=== PATIENT | male | born 1965 | race Caucasian/White ===

== ENCOUNTER → 2017-07-17 | Outpatient (CLI) | payer BC ==
[~2017-07-17] VITALS: Ht 177.8 cm; Wt 86.2 kg
[~2017-07-17] MED LIST: ANAFRANIL50 MG PO; ANAFRANIL75 MG PO; CLOMIPRAMINE HC25 M1 PO; FETZIMA1 EACH PO; HYDROCODONE-AP1 EAC6 PO; IBUPROFEN 200200 M1 PO; IBUPROFEN200 M2 PO; MEN'S MULTIVI200 MCG PO; NABUMETONE 750750 M1 PO; NORCO 5-325 TA1 EACH PO; OXYCODONE-APAP1 EAC6 PO; PERCOCET 7.5-31 EAC1 PO; SYMBYAX 3-25 M1 EACH PO; TRILEPTAL 300300 MG PO; UNICOMPLEX M TA1 TA1 PO
--- NOTE | ~2017-07-17 | HPC ---
[facility] [place] [address] PAIN MANAGEMENT CONSULTATION Name: BOBEMELIAJUANA Flores JR Room #: REG [facility]#: [id number] Admission: 07/17/17 Attend Phys: Quinn Alvarado DO Discharge: Date of : 65 Report #: [id number] THIS REPORT FOR: //name// CC: Jessica Alvarado The patient is a 52-year-old gentleman seen a little greater than 1 year ago, 07/05/2016, for symptomatic lumbar radiculopathy, given a right L4-L5 transforaminal epidural injection, somewhat lost to follow up. The patient notes the injection afforded very good relief, specifically noting 65% relief, able to do activities for 6 plus months. The patient notes the pain has recurred without antecedent trauma and overuse. Pain is in the low back, right leg down the lateral aspect of the leg to the foot. He rates his pain at 8-9 on VAS at the end of the day. He has changed job descriptions at work. He had been involved in some fairly heavy lifting, changing wheels and tires on truck about 70 pounds. He also fell while he was carrying a humidifier down the stairs, this seemed to be the activity that significantly exacerbated pain earlier this year, and pain is continued. He has had 2 back surgeries in 2008 and 2011. The patient notes the pain is exacerbated with standing, walking, and bending. Gets some relief with stretching, Biofreeze and nonsteroidal anti-inflammatory medication. He had a few oxycodone left, which has helped as well. PHYSICAL EXAMINATION: Reveals a 52-year-old gentleman, BMI is 27.3 kg/m2. Blood pressure 129/83, pulse 104, and respirations 20. Alert and oriented to person, place and time, judged to be a reasonable historian. Rises from chair using armrest. Modestly antalgic gait favoring the right leg. Right hip flexion strength is diminished compared to left to objective testing. Positive straight leg raise on the right at 30 degrees. Diffuse tenderness across the low back. No discrete trigger points noted. DIAGNOSTIC STUDIES: Include MRI of the lumbar spine from 2013, noting changes of the right laminotomy at L4-L5; however, postoperative granulation tissue is noted at this level, right-sided nerve roots compromised by [id number] right neural foraminal stenosis. ASSESSMENT: Symptomatic lumbar radiculopathy by clinical exam and history, status post decompressive laminectomy in a gentleman with neuropathic pain component. RECOMMENDATIONS: 1. Percocet 7.5/325, prescription generated today 1 tablet 2-3 times a day as needed for pain, dispense 100 tablets, no refills. 2. Continue ibuprofen OTC. [facility] [address] [place] [address] PAIN MANAGEMENT CONSULTATION Name: EMELIA ROJAS Room #: REG [facility]#: [id number] Admission: 07/17/17 Attend Phys: Quinn Alvarado DO Discharge: Date of : 65 Report #: [id number] 3. Right L4-L5 transforaminal epidural injection today. 4. Follow up in 3 weeks for reevaluation and consideration of repeat injection if indicated clinically. PROCEDURE: Right L4-L5 transforaminal epidural injection under fluoroscopy. PROCEDURE NOTE: After both written and informed consent was obtained including risk of spinal cord damage, infection, increased pain and paralysis, the patient agreed to proceed. The patient was taken to the fluoroscopy suite, placed in a prone position with appropriate abdominal bolstering. After sterile prep with ChloraPrep and sterile drape, a skin wheal with 1% Xylocaine was raised. A 22 gauge 4-1/2 inch epidural Tuohy needle was inserted. From an oblique approach into the posterior-superior aspect of the right L4-L5 neural foramen with continuous pressure on the glass syringe plunger for loss of resistance. Glass syringe was filled with 2 cc of 0.1 Xylocaine. The glass loss of resistance syringe was removed. A low volume extension tubing was connected, negative aspiration was accomplished for cerebrospinal fluid or blood. 1 mL of Omnipaque was injected which showed spread both within the epidural space and laterally along the nerve root. This was followed with 80 mg of triamcinolone plus 1 mL of 1.5% preservative-free Xylocaine. Needle was partially withdrawn, 0.5 mL of Xylocaine was injected to clear the needle and the needle was removed. The area was cleansed, band-aid was applied. The patient was allowed to ambulate to the recovery room, discharged in good and stable condition. By: [id number] Quinn Alvarado DO /nt
[2017-07-17 08:37] VITALS: BP 129/83
== END | disposition home or self-care (01) ==
LOC: PAIN 06:26
DX: M54.16 Radiculopathy, lumbar region (principal); Z98.890 Other specified postprocedural states; M48.06 Spinal stenosis, lumbar region; G62.9 Polyneuropathy, unspecified

== ENCOUNTER → 2017-09-03 | Outpatient (CLI) | payer BC ==
[~2017-09-03] VITALS: Ht 177.8 cm; Wt 91.7 kg
--- NOTE | ~2017-09-03 | HPC ---
[facility] [place] [address] [place] [address] PAIN MANAGEMENT CONSULTATION Name: EMELIA ROJAS Room #: REG [facility]#: [id number] Admission: 09/03/17 Attend Phys: Milagro Baker MD Discharge: Date of : 65 Report #: [id number] THIS REPORT FOR: //name// CC: Milagro Corbin DATE OF SERVICE: 09/03/2017 FOLLOWUP COMPLAINT: Pain in the low back and right leg. FOLLOWUP HISTORY: The patient is a 52-year-old gentleman who has been seen in the pain clinic. He suffered from lumbar radiculopathy. This is in the right L4-L5 distribution. He has undergone transforaminal epidural steroid injections by Dr. Alvarado. He feels that these have been beneficial. He has noted a worsening of his pain and has returned to the pain clinic for treatment at this juncture. He rates his pain as a 7-8. It involves his right low back with pain radiating down into the buttocks, right leg lateral radiation to his knee and down to the calf area. He has some discomfort in his right hip as well. PHYSICAL EXAMINATION: Blood pressure 177/83, pulse 64, respiratory rate 20, room air saturation is 100%. IMPRESSION: Lumbar radiculopathy, L5 distribution on the right. RECOMMENDATIONS: We will proceed with an epidural steroid injection using the transforaminal approach. PROCEDURE NOTE: The patient was placed in the prone position. The right lateral area was sterilely prepped. A fluoroscopy was used to place the needle in the appropriate placement for right transforaminal approach at L4-L5. A total of 80 mg Depo-Medrol was injected. The patient tolerated the procedure well. There were no complications. He will follow up in the future as needed. We would like to thank you for letting us participate in his care. We hope he continues to improve. <ELECTRONICALLY SIGNED> By: Milagro Baker MD 09/25/17 0902 [id number] Milagro Baker MD /[facility]
[2017-09-03 11:31] VITALS: BP 177/83
== END | disposition home or self-care (01) ==
LOC: PAIN 07:19
DX: M54.16 Radiculopathy, lumbar region (principal)

== ENCOUNTER → 2017-12-05 | Outpatient (CLI) | payer BC ==
[~2017-12-05] VITALS: Ht 177.8 cm; Wt 92.5 kg
[~2017-12-05] MED LIST changes: +CYMBALTA60 MG PO; +QUETIAPINE FUM100 MG PO; +QUETIAPINE FUM150 MG PO; +SEROQUEL200 MG PO; +TRAZODONE 150150 M1 PO; +VRAYLAR1.5 MG PO
--- NOTE | ~2017-12-05 | HPC ---
[facility] [place] [address] PAIN MANAGEMENT CONSULTATION Name: BOBEMELIAJUANA Flores JR Room #: REG [facility]#: [id number] Admission: 12/05/17 Attend Phys: Quinn Alvarado DO Discharge: Date of : 65 Report #: [id number] THIS REPORT FOR: //name// CC: Jessica Alvarado DATE OF SERVICE: 12/05/2017 HISTORY OF PRESENT ILLNESS: The patient is a 52-year-old gentleman typically treated for lumbar radiculopathy, status post two decompressive laminectomies in 2008 and 2011. He does well with occasional right L4-L5 transforaminal epidural injections. I had given him a single injection back in June. He had repeat injection in August with Dr. Fortunato Baker. He notes about 70% overall improvement of baseline pain. Still has some ongoing pain in the right leg. PHYSICAL EXAMINATION: Does show a 52-year-old gentleman, BMI is 29.3 kilograms per meter squared. Vital signs stable with modest hypertension (blood pressure 137/90), pulse is 74, respirations 16, oxygen saturation 95%. Subjective pain score is 4 on a VAS. He has not fallen in the last 3 months. He is hypertensive, medication list was reconciled. We reviewed our opiate consent to treat, contract to sign 04/12/2016. Functional assessment tool score is 57/70. He is in the low risk assessment for opiate diversion. He has slightly decreased right plantarflexion, dorsiflexion, and lower extremity extension perhaps 3-4/5, all other muscle groups are 4-5/5. Positive straight leg raise on the right at 30 degrees. We reviewed the fact that opiate medications are being used to provide analgesia adequate to support activities of daily living, not attempting to achieve a specific pain score on the 0-10 Visual Analog Scale. The current opiate medications are providing sufficient analgesia to allow the patient to participate in activities of daily living. The patient is not exhibiting any aberrant behavior suggestive of drug diversion. The patient is not having any adverse reactions to medications. The patient is not suffering from daytime somnolence or mental acuity changes. The patient is managing opiate-induced constipation with appropriate mfur-xzz-zorqgux agents and dietary considerations. The patient was counseled on concern for caution with operating a motor vehicle while using opiate medications. A physical exam was performed and the patient's functional status was evaluated. All patients with back pain were advised against the bed rest greater than 4 days and were advised to return to normal activities. Pain score assessment was noted and the treatment plan was reviewed with the patient. All current medications, both prescribed and OTC were reviewed and reconciled on the electronic medical record. Tobacco screening was accomplished and smoking cessation was advised when indicated. BMI was noted and diet/exercise modification was recommended for all patients following outside normal [address] [address] PAIN MANAGEMENT CONSULTATION Name: EMELIA ROJAS [id number] Admission: 12/05/17 Attend Phys: Quinn Alvarado DO Discharge: Date of : 65 Report #: [id number] parameters. I reviewed with the patient today their responsibilities to safeguard prescription medications, reviewed their responsibility to utilize medications only as prescribed by the physician. They are to seek and receive pain medications only from 1 physician group ( [facility]). They are to use 1 pharmacy and keep the clinic informed if they change pharmacies. Their responsibilities include making followup visits in a timely fashion and to avoid abrupt discontinuation of medication usage. Their responsibilities further include bringing their medications (bottles from the pharmacy with residual pills) to the visit for possible confirmation of pill counts and the patient understands it is their responsibility to submit to random drug screens to ensure both that the medications prescribed are present, and that no other controlled substances are present. All prescriptions provided today were generated electronically. ASSESSMENT: Symptomatic lumbar radiculopathy status post decompressive laminectomy. PLAN: The patient does well with occasional right transforaminal epidural injections. He is stable on baseline medications, doing reasonably well at this time. We elected to postpone interventional therapy. Simply, we will renew Percocet 7.5/325, dispense 75 tablets. Typically, this lasts him multiple months. He uses the medication actually a nondaily basis. We will see the patient as needed for right L4-L5 transforaminal epidural injection next visit. <ELECTRONICALLY SIGNED> By: Quinn Alvarado DO 12/10/17 0725 [id number] Quinn Alvarado DO /nt
[2017-12-05 10:18] VITALS: BP 137/90
== END ==
LOC: PAIN 07:19
DX: M54.16 Radiculopathy, lumbar region (principal); M96.1 Postlaminectomy syndrome, not elsewhere classified

== ENCOUNTER → 2018-03-27 | Outpatient (CLI) | payer BC ==
[~2018-03-27] VITALS: Ht 177.8 cm; Wt 92.1 kg
[~2018-03-27] MED LIST changes: -QUETIAPINE FUM150 MG PO
--- NOTE | ~2018-03-27 | HPC ---
[facility] [place] [address] PAIN MANAGEMENT CONSULTATION Name: BOBEMELIAJUANA Flores JR Room #: REG [facility].#: [id number] Admission: 03/27/18 Attend Phys: Quinn Alvarado DO Discharge: Date of : 65 Report #: [id number] THIS REPORT FOR: //name// CC: Jessica Alvarado DATE OF SERVICE: 03/27/2018 HISTORY OF PRESENT ILLNESS: The patient is a very pleasant 52-year-old gentleman, long known to the pain clinic, being treated for lumbar radiculopathy, status post 2 discrete lumbar laminectomies with ongoing neuropathic pain. He has done well with occasional right L4-L5 transforaminal epidural injections. He uses Percocet 7.5/325 rarely, 75 tablets prescription generated on 12/05/2017 has lasted nearly 4 months. Returns to pain clinic today noting good relief following the prior injection, 60% for nearly 6 months. Pain has begun to recur. He notes the pain is in the low back, right leg, exacerbated with standing, walking and bending. He has a burning, fatigue, aching sensation, rates a 7-8 on a VAS. PHYSICAL EXAMINATION: GENERAL: Shows pleasant 52-year-old gentleman, BMI is 29.1 kilograms per meter squared. VITAL SIGNS: Show modest hypertension, blood pressure 152/105, pulse 66, respirations 16. MUSCULOSKELETAL: Rises from chair using the armrest, modestly antalgic gait, positive straight leg raise on the right with decreased right hip flexion and plantar flexion strength. The patient notes symptoms seem to get worse after helping his son move. ASSESSMENT: Symptomatic lumbar radiculopathy, status post decompressive laminectomy, neuropathic pain component. RECOMMENDATION: Right L4-L5 transforaminal epidural injection under fluoroscopy today. Follow up simply as needed. He has seen Dr. Fortunato Baker who gave him a right L4-L5 transforaminal epidural injection back in August. We will have him followup with Dr. Baker as needed. PROCEDURE: Transforaminal lumbar epidural injection under fluoroscopy. PROCEDURE NOTE: After both written and informed consent was obtained including risk of spinal cord damage, infection, increased pain and paralysis, the patient agreed to proceed. The patient was taken to the fluoroscopy suite, placed in a prone position with appropriate abdominal bolstering. After sterile prep with ChloraPrep and sterile drape, a skin wheal with 1% Xylocaine was raised. A 22 gauge 4-1/2 inch epidural Tuohy needle was inserted. [place] [address] PAIN MANAGEMENT CONSULTATION Name: EMELIA ROJAS Room #: REG [facility] Jahaira#: [id number] Admission: 03/27/18 Attend Phys: Quinn Alvarado DO Discharge: Date of : 65 Report #: [id number] into the posterior-superior aspect of the right L4-L5 neural foramen with continuous pressure on the glass syringe plunger for loss of resistance. Glass syringe was filled with 2 mL of 0.1 Xylocaine. The glass loss of resistance syringe was removed. A low volume extension tubing was connected, negative aspiration was accomplished for cerebrospinal fluid or blood. 1 mL of Omnipaque was injected which showed spread both within the epidural space and laterally along the nerve root. This was followed with 80 mg of triamcinolone plus 1 mL of 1.5% preservative-free Xylocaine. Needle was partially withdrawn, 0.5 mL of Xylocaine was injected to clear the needle and the needle was removed. The area was cleansed, Band-Aid was applied. The patient was allowed to ambulate to the recovery room, discharged in good and stable condition. <ELECTRONICALLY SIGNED> By: Quinn Alvarado DO 03/30/18 0709 [id number] Quinn Alvarado DO /nt
[2018-03-27 09:06] VITALS: BP 152/105
== END | disposition home or self-care (01) ==
LOC: PAIN 06:56
DX: M54.16 Radiculopathy, lumbar region (principal); G89.29 Other chronic pain; Z98.890 Other specified postprocedural states; Z88.8 Allergy status to other drugs, medicaments and biological substances; Z79.891 Long term (current) use of opiate analgesic

== ENCOUNTER → 2018-06-03 | Outpatient (CLI) | payer BC ==
[~2018-06-03] VITALS: Ht 177.8 cm; Wt 89.4 kg
[2018-06-03 14:35] VITALS: BP 146/108
== END ==
LOC: PAIN 06:49
DX: M54.5 Low back pain (principal); M79.604 Pain in right leg; M25.551 Pain in right hip; Z79.899 Other long term (current) drug therapy

== ENCOUNTER → 2018-07-31 | Outpatient (CLI) | payer BC ==
[~2018-07-31] VITALS: Ht 177.8 cm; Wt 89.2 kg
[~2018-07-31] MED LIST changes: +QUETIAPINE FUM150 MG PO
--- NOTE | ~2018-07-31 | HPC ---
[facility] [place] [address] PAIN MANAGEMENT CONSULTATION Name: BOBEMELIAJUANA Flores JR Room #: REG [facility]#: [id number] Admission: 07/31/18 Attend Phys: Milagro Baker MD Discharge: Date of : 65 Report #: [id number] THIS REPORT FOR: //name// CC: Milagro Corbin DATE OF SERVICE: 07/31/2018 PRIMARY CARE PHYSICIAN: Jessica Corbin M.D. FOLLOWUP HISTORY: Here for medication renewal. HISTORY OF PRESENT ILLNESS: The patient is a 53-year-old gentleman who has been followed in the pain clinic. He has pain secondary to lumbar radiculopathy. He has undergone epidural steroid injections in the past. They have been beneficial. Returns today indicating that his pain continues to be a 7/10. He would like to have his medications renewed at this juncture. He will consider epidural steroid injections in the future. He is not having any problems with his medications. He is able to think clearly. He continues to experience some pain in his low back with pain radiating down into his right foot. He has had pain problems for quite some time since 2008. As you may recall, he has had back surgery on a couple of occasions in 2008 as well as 2011. Notes that the pain improves with his routine of stretching and use of Biofreeze and cold as well as repositioning sometimes heat can be efficacious. He notes that some pain, which exacerbates his discomfort is getting up and moving from a chair. ALLERGIES: No known drug allergies. CURRENT MEDICATIONS: Percocet 7.5 mg 1 p.o. t.i.d., cariprazine, quetiapine ER150 mg at bedtime. PAIN CLINIC ASSESSMENT AND PQRS: 1. Osteoarthritis/rheumatoid arthritis. The patient is not being treated for rheumatoid arthritis. 2. Height 5 feet 10 inches, weight 196 pounds, BMI is 28.2. 3. Vital signs: Blood pressure 145/97, pulse is 70, respiratory rate 18, room air saturation 100%. 4. Pain intensity 04/28. 5. Fall risk. The patient has not fallen in the last 3 months. 6. Blood thinner. The patient is not on a blood thinning medication. 7. Hypertension. The patient states he has not been treated for hypertension. 8. Opioid therapy greater than 6 weeks. The patient is receiving medications from one source, the pain clinic. 9. Risk assessment tool, low for use of opioids. 10. Functional assessment tool 46/70. [address] [address] PAIN MANAGEMENT CONSULTATION Name: EMELIA ROJAS Room #: REG [facility]#: [id number] Admission: 07/31/18 Attend Phys: Milagro Baker MD Discharge: Date of : 65 Report #: [id number] 11. Recreational drug use. The patient denies use of recreational drugs. 12. Tobacco: The patient denies use of tobacco. 13. Alcohol: The patient denies frequent use of alcoholic beverages. PHYSICAL EXAMINATION: GENERAL: The patient is a well-developed, well-nourished, white male. Appears his stated age. He is alert and oriented x 3. Affect is appropriate. Speech is fluent. HEENT: Normocephalic, atraumatic. Extraocular eye muscles intact. Sclerae nonicteric. Mucous membranes are moist. Hearing is within normal limits. NECK: Without adenopathy or JVD. HEART: Regular rate. S1, S2. LUNGS: Clear to auscultation without rhonchi or rales. ABDOMEN: Nontender, without organomegaly. Bowel sounds present. EXTREMITIES: Without significant scoliosis, kyphosis or lordosis. Strength in the lower extremities judged to be 5/5 for the major muscle groups. The patient has some pain and discomfort in the L4-L5 distribution with pain radiating down into his low back area. Notes some pain involving the right side. IMPRESSION: 1. Symptomatic lumbar radiculopathy. 2. Status post lumbar decompressive laminectomy x 2 in 2008 and 2011. 3. Neuropathic pain. 4. Pain treatment with complex medical management. RECOMMENDATIONS: We discussed treatment options with the patient. At this juncture, he feels his medications are working reasonably well. He is gainfully employed. He does not have any problems with his medications. He is able to think clearly. He keeps his medications in a guarded area. He is aware that opioid medications can be problematic. He has seen this in the news. He is aware that 72,000 people last year as a result of opioid medications. He states that his medications are working well. We have also discussed the possible complication of these medications, which could include addiction as well as decreased efficacy secondary to development of tolerance. He would like to continue his medication and keeps them in a guarded area. A script for his medications of oxycodone 7.5 mg 1 p.o. t.i.d. has been written. He will call us if he has any problems. We would like to thank you for letting us participate in his care. We hope he continues to improve. <ELECTRONICALLY SIGNED> By: Milagro Baker MD 08/03/18 1125 [id number] MD ERIN Delgado
[2018-07-31 10:09] VITALS: BP 145/97
== END ==
LOC: PAIN 07:05
DX: M54.16 Radiculopathy, lumbar region (principal); G62.9 Polyneuropathy, unspecified; M96.1 Postlaminectomy syndrome, not elsewhere classified; Z79.899 Other long term (current) drug therapy

== ENCOUNTER → 2018-08-28 | Outpatient (CLI) | payer BC ==
[~2018-08-28] VITALS: Ht 177.8 cm; Wt 89.2 kg
[~2018-08-28] MED LIST changes: +SEROQUEL XR150 MG PO; +ZOLOFT50 MG PO
--- NOTE | ~2018-08-28 | HPC ---
[facility] [place] [address] PAIN MANAGEMENT CONSULTATION Name: BOBEMELIAJUANA Flores JR Room #: REG [facility]#: [id number] Admission: 08/28/18 Attend Phys: Milagro Baker MD Discharge: Date of : 65 Report #: [id number] THIS REPORT FOR: //name// CC: Milagro Corbin DATE OF SERVICE: 08/28/2018 FOLLOWUP COMPLAINT: Here for medication renewal. FOLLOWUP HISTORY: The patient is a 53-year-old gentleman who has been followed in the pain clinic. He suffers from lumbar radiculopathy. He has been provided epidural steroid injections in the past. He finds that these are beneficial. He returns today indicating that his pain is 5/10. He feels that his medications are helpful and would like to have them renewed. He is not having pain significant enough to undergo an epidural steroid injection at this juncture. He feels that his medications enable him to be gainfully employed. Pain has been problematic since 2008. He has undergone back surgery on two occasions in 2008 as well as in 2011. Continues to stretch as well as use cold compresses and Biofreeze. These in conjunction with heated times are efficacious. Notes that this pain does affect activities of daily living. Sometimes standing can be more problematic. ALLERGIES: No known drug allergies. MEDICATIONS: Percocet 7.5 mg 1 p.o. t.i.d., cariprazine, and quetiapine extended release 150 mg at bedtime. PAIN CLINIC ASSESSMENT AND PQRS: 1. Osteoarthritis/rheumatoid arthritis. The patient is not being treated for rheumatoid arthritis. 2. Height 5 feet 10 inches, weight 196 pounds, BMI is 28.2. 3. Vital signs: Blood pressure 149/91, pulse 73, respiratory rate 18, room air saturation is 100. 4. Pain intensity 5/10. 5. Fall risk. The patient has not fallen in the last 3 months. 6. Blood thinner. The patient is not on a blood thinning medication. 7. Hypertension. The patient is being treated for hypertension. 8. Opioids greater than 6 weeks. The patient receives his medications from one source, the pain clinic. 9. Risk assessment risk, low risk ____ for opioid use. 10. Functional assessment tool . 11. Recreational drug use. The patient denies use of recreational drugs. 12. Tobacco: The patient has never smoked. 13. Alcohol: The patient denies frequent use of alcoholic beverages. [facility] [address] [place] [address] PAIN MANAGEMENT CONSULTATION Name: EMELIA ROJAS Room #: [facility]#: [id number] Admission: 08/28/18 Attend Phys: Milagro Baker MD Discharge: Date of : 65 Report #: [id number] PHYSICAL EXAMINATION: GENERAL: The patient is a well-developed, well-nourished white male. He appears his stated age. He is alert and oriented x 3. His affect is appropriate. Speech is fluent. HEENT: Normocephalic, atraumatic. Extraocular eye muscles intact. Sclerae nonicteric. Mucous membranes are moist. Hearing is within normal limits. NECK: Without adenopathy or JVD. HEART: Regular rate. S1, S2. LUNGS: Clear to auscultation without rhonchi or rales. ABDOMEN: Without organomegaly. Bowel sounds present. EXTREMITIES: Without scoliosis, kyphosis, or lordosis. Strength in the lower extremities is judged to be 5/5 for the major muscle groups. The patient has some discomfort in L4-L5 distribution with pain that radiates down into his low back area. Pain is primarily on the right side. IMPRESSION: 1. Lumbar radiculopathy. 2. Status post lumbar decompressive laminectomy x 2, in 2008 and 2011. 3. Neuropathic pain. 4. Pain treatment with complex medical management. RECOMMENDATIONS: We discussed treatment options with the patient. We explained the possible complication of opioid use. They include less effectiveness secondary to development of tolerance as well as addiction. The patient feels that the medication is helpful. He is able to remain gainfully employed. He is thinking clearly. He is having no problems with the medication. He is getting the medications from one source. At this juncture, we would like to continue with his medications. We will continue with his medication. A script for his medication of oxycodone 7.5 mg 1 p.o. t.i.d. has been written. He will call us if he has any complications or concerns. We would like to thank you for letting us participate in his care. We hope he continues to improve. By: [id number] Milagro Baker MD /nt
[2018-08-28 08:49] VITALS: BP 149/91
== END ==
LOC: PAIN 06:50
DX: M54.16 Radiculopathy, lumbar region (principal); M96.1 Postlaminectomy syndrome, not elsewhere classified; Z79.899 Other long term (current) drug therapy

== ENCOUNTER → 2018-09-23 | Outpatient (CLI) | payer BC ==
[~2018-09-23] VITALS: Ht 177.8 cm; Wt 86.7 kg
[~2018-09-23] MED LIST changes: +CLONAZEPAM 0.50.5 M1 PO; +PERCOCET 7.5-31 EACH PO
--- NOTE | ~2018-09-23 | HPC ---
[facility] [address] [place] [address] PAIN MANAGEMENT CONSULTATION Name: EMELIA ROJAS Sandra RAY Room #: REG [facility]#: [id number] Admission: 09/23/18 Attend Phys: Mary Ann Pacheco Discharge: Date of : 65 Report #: [id number] THIS REPORT FOR: //name// CC: Mary Ann Pacheco [facility] DATE OF SERVICE: 09/23/2018 CHIEF COMPLAINT: Back pain related to lumbar radiculopathy. HISTORY OF PRESENT ILLNESS: This is a very pleasant 53-year-old gentleman who has been seen in our pain clinic for his ongoing low back pain and right leg pain. He has had multiple lumbar epidural steroid injections in the past that have been helpful, but today, he is here for medication refill for his Percocet 7.5/325. He tells me that he tries to prolong his injections in between them until his pain is significantly worse because he knows he is only allowed so many in a specific timeframe. He is telling me that his pain is a 6 today, worse with burning, tingling and he does feel some weakness in his legs, especially after he has been sitting in a chair for a while, all with bending and twisting. His medication and cold and repositioning do help him feel better. He does deny any daytime sleepiness or any constipation. He would like a prescription refill today of his Percocets. ALLERGIES: GABAPENTIN. LIST OF CURRENT MEDICATIONS: Oxycodone 7.5/325, Seroquel 150 mg at bedtime, Zoloft 50 mg daily, clonazepam 0.5 mg p.r.n. PQRS: 1. He has a history of osteoarthritis in his back. Denies rheumatoid arthritis. 2. Height is 5 feet 10 inches, weight is 192 pounds, BMI is 27.4. 3. Vital signs: Blood pressure 139/82, pulse is 71, respirations 14, oxygen sat is 99%. Pain score is 6/10. 4. Fall risk. He denies dizziness. Does not need help walking or standing and has not fallen in the last 3 months. 5. The patient is not on any blood thinners and does have a history of hypertension, but does not take any medications. 6. Opioid therapy is greater than 6 weeks; therefore, an opioid signed contract is on the chart. 7. His risk assessment tool is low and his functional assessment is 46/70. 8. The patient denies recreational drug use. Does not smoke and does not drink alcohol. We have checked his prescription monitoring programs and find that he is feeling appropriately from Dr. Baker for his narcotic medications. The patient tells me [address] [address] PAIN MANAGEMENT CONSULTATION Name: EMELIA ROJAS Room #: REG [facility]#: [id number] Admission: 09/23/18 Attend Phys: Mary Ann Pacheco Discharge: Date of : 65 Report #: [id number] he does safeguard his medicine and he has no apparent aberrant behaviors. PHYSICAL EXAMINATION: GENERAL: This patient is a well-developed, well-nourished, white male. He appears his stated age. He is alert and oriented x 3. Affect is appropriate and speech is fluent. HEENT: Normocephalic, atraumatic. Extraocular eye muscles are intact. Mucous membranes are moist and hearing is within normal limits. NECK: Without adenopathy or JVD. EXTREMITIES: Without significant scoliosis, kyphosis or lordosis. Strength in lower extremities judged to be 5/5 in all of his major muscle groups. The patient has discomfort from sitting to standing position in his lower back. Pain does radiate down his right leg. ASSESSMENT: 1. Symptomatic lumbar radiculopathy. 2. Status post lumbar decompression laminectomy x 2. 3. Neuropathic pain. 4. Chronic pain treated with complex medical management. We reviewed the fact that opiate medications are being used to provide analgesia adequate to support activities of daily living, not attempting to achieve a specific pain score on the 0-10 Visual Analog Scale. The current opiate medications are providing sufficient analgesia to allow the patient to participate in activities of daily living. The patient is not exhibiting any aberrant behavior suggestive of drug diversion. The patient is not having any adverse reactions to medications. The patient is not suffering from daytime somnolence or mental acuity changes. The patient is managing opiate-induced constipation with appropriate arlm-jbd-yntebea agents and dietary considerations. The patient was counseled on concern for caution with operating a motor vehicle while using opiate medications. A physical exam was performed and the patient's functional status was evaluated. All patients with back pain were advised against the bed rest greater than 4 days and were advised to return to normal activities. Pain score assessment was noted and the treatment plan was reviewed with the patient. All current medications, both prescribed and OTC were reviewed and reconciled on the electronic medical record. Tobacco screening was accomplished and smoking cessation was advised when indicated. BMI was noted and diet/exercise modification was recommended for all patients following outside normal parameters. I reviewed with the patient today their responsibilities to safeguard prescription medications, reviewed their responsibility to utilize medications only as prescribed by the physician. They are to seek and receive pain medications only from 1 physician group ([facility]). They are to use [address] [address] PAIN MANAGEMENT CONSULTATION Name: EMELIA ROJAS Room #: [facility]#: [id number] Admission: 09/23/18 Attend Phys: Mary Ann Pacheco Discharge: Date of : 65 Report #: [id number] pharmacy and keep the clinic informed if they change pharmacies. Their responsibilities include making followup visits in a timely fashion and to avoid abrupt discontinuation of medication usage. Their responsibilities further include bringing their medications (bottles from the pharmacy with residual pills) to the visit for possible confirmation of pill counts and the patient understands it is their responsibility to submit to random drug screens to ensure both that the medications prescribed are present, and that no other controlled substances are present. All prescriptions provided today were generated electronically. PLAN: 1. We discussed treatment options today with this patient. At this time, he feels that his medications are working well. He has been taking Percocet 7.5/325 two to three times a day, quantity is 75 that lasts him a month. The patient would like a refill today. We did review his chart and see that he has been getting prescriptions consistently every month. He has only had one lumbar epidural injection in the past year. The patient feels that his pain is not significant enough to warrant an injection, but does realize that he is taking a few more pain pills than he used to. His history was that he would get an injection and get a prescription and that would last him a couple of months and he come back and get another previous injection. The patient tells me that he may consider getting another one in the near future, but does feel not like it is warranted at this time. 2. Scripts given today of Percocet 7.5/325, #75 for today and 4-week. The patient will return as needed for an injection or prescriptions. 3. The patient seen in collaboration today with Dr. Guzman Baker. <ELECTRONICALLY SIGNED> By: Mary Ann Pacheco 09/23/18 1530 [id number] Mary Ann Pacheco /nt
[2018-09-23 11:02] VITALS: BP 139/82
== END ==
LOC: PAIN 10:48
DX: M54.16 Radiculopathy, lumbar region (principal); G89.29 Other chronic pain

== ENCOUNTER → 2019-11-26 | Outpatient (CLI) | payer BC ==
[~2019-11-26] VITALS: Ht 177.8 cm; Wt 91.1 kg
[~2019-11-26] MED LIST changes: +ASA81BEC PO; +COZAAR 25 MG TA25 M1 PO; +LIPITOR 20 MG T20 M1 PO; +ZYPREXA5 MG PO
--- NOTE | ~2019-11-26 | HPC ---
[facility] [place] [address] PAIN MANAGEMENT CONSULTATION Name: EMELIA ROJAS Room #: REG [facility]#: [id number] Admission: 11/26/19 Attend Phys: Milagro Baker MD Discharge: Date of : 65 Report #: [id number] THIS REPORT FOR: cc: Jessica Corbin MD,Jessica Baker,Milagro Bucio MD ~ THIS REPORT FOR: //name// CC: Milagro Corbin DATE OF SERVICE: 11/26/2019 CHIEF COMPLAINT: "I have undergone physical therapy and was doing pretty well until I walked upstairs and noted recurrence of pain." HISTORY: The patient is a 54-year-old gentleman who has been followed in the pain clinic because of chronic pain. He has undergone lumbar surgery in the past. He returns today indicating that he has noticed a recurrence of pain in his low back area with pain that radiates down into his right side. Notes that the pain goes down the buttocks, lateral side of his leg, calf, and down into the area of his big toe. He sometimes notices that his big toe is numb. Denies any new bowel or bladder function problems. He has been changing his tennis shoes to see whether or not different types of shoes would be more comfortable and decrease the numbing sensation that he has in his lower extremity. He has been using a wrap on the right calf. He states that he did place it on his right calf somewhat tightly in the past. He did notice some swelling in his ankle. The swelling resolved after he removed the wrap. ALLERGIES: GABAPENTIN CAUSES ITCHING. CURRENT MEDICATIONS: Oxycodone has been used in the past, Seroquel 150 mg at bedtime, Zoloft 50 mg, clonazepam 0.5 mg, aspirin 81 mg, losartan 25 mg, Lipitor 20 mg, Zyprexa 5 mg. PAIN CLINIC ASSESSMENT AND PQRS: 1. The patient does have a history of osteoarthritic changes in his back. He is status post surgery. 2. The patient is not being treated for rheumatoid arthritis. 3. Height 5 feet 10 inches, weight 200 pounds, BMI is 28.8. 4. Vital signs: Blood pressure 131/91, pulse 50, respiratory rate 16, room air saturation 100%. 5. Pain intensity, 10. 6. Fall history. The patient has not fallen in the last 3 months. 7. Blood thinner. The patient is not on a blood thinning medication. 8. Hypertension. The patient [place] [address] PAIN MANAGEMENT CONSULTATION Name: EMELIA ROJAS Room #: REG [facility]#: [id number] Admission: 11/26/19 Attend Phys: Milagro Baker MD Discharge: Date of : 65 Report #: [id number] 9. Opioids greater than 6 weeks. The patient episodically uses oxycodone to help control the pain. He has not used it for a number of months. 10. Risk assessment tool, low for opioid use. 11. Functional assessment tool, /. 12. Recreational drug use. The patient denies. 13. Tobacco. The patient denies. 14. Alcohol. The patient denies frequent use of alcoholic beverages. PHYSICAL EXAMINATION: GENERAL: The patient is a well-developed, well-nourished, white male. Appears his stated age. He is alert and oriented x 3. His affect is appropriate. Speech is fluent. HEENT: Normocephalic, atraumatic. Extraocular eye muscles intact. Sclerae nonicteric. Mucous membranes are moist. NECK: Without adenopathy or JVD. HEART: Regular rate. ABDOMEN: Nontender. EXTREMITIES: Upper extremity muscle strength judged to be 5/5 for the major muscle groups in the upper extremity. The patient without significant scoliosis, kyphosis, or lordosis. The patient has pain and discomfort, which is radiating down in the L4-L5 dermatomal distribution involving his right leg. Notes that there is some numbness and tingling of his great toe and the toe next to it. Sometimes feels numb as well. IMPRESSION: 1. Lumbar radiculopathy, L4-L5 dermatomal distribution on the right. 2. History of lumbar radiculopathy, status post back surgery in the past. 3. Hypertension. 4. Hypercholesterolemia. 5. Neuropathic pain. 6. Status post lumbar laminectomy with decompression x 2. RECOMMENDATIONS: We discussed treatment options with the patient. At this juncture, he would like to continue with the most conservative approach. We will have the patient try a nonsteroidal anti-inflammatory medication. He will try Percocet 7.5 mg 1 p.o. b.i.d./t.i.d. p.r.n. for pain. He would like to continue with this regimen. Should his pain continue to be problematic, he will return to the pain clinic at which time he may consider an epidural steroid injection to help quell the pain. We have discussed the possible trial of Lyrica. This agent might be helpful with the pain and discomfort that he is having. He will give it some consideration. A sample of Lyrica has been provided, 50 mg tablets. He will call us if he has any concerns. [facility] [address] [place] [address] PAIN MANAGEMENT CONSULTATION Name: EMELIA ROJAS Room #: REG [facility]#: [id number] Admission: 11/26/19 Attend Phys: Milagro Baker MD Discharge: Date of : 65 Report #: [id number] We would like to thank you for letting us participate in his care. We hope he continues to improve. By: [id number] Milagro Baker MD /PMT
[2019-11-26 09:29] VITALS: BP 131/91
--- NOTE | 2019-11-26 10:10 | NUR ---
Pain Clinic Assessment: 1. History of Osteoarthritis: BACK History of Rheumatoid Arthritis: Not Applicable 2. Height: 5 ft. 10 in. 177.8 cm. Weight: 200.8 lb. oz. 91.082 kg. Patient's BMI: 28.8 3. Vital Signs: BP: 131/91 Pulse: 50 Resp: 16 Temp: 02 Sat: 100 ECG Mon: 4. Pain Intensity: 7 5. Fall Risk: Dizziness: N Needs help standing or walking: N Fallen in the last 3 months: N Fall risk comments: 6. Patient on Blood Thinner: None 7. History of Hypertension: Y 8. Opioid Therapy greater than 6 weeks: Y Opiate Contract Signed: 04/12/16 9. Risk Assessment Tool Provided: LOW RISK 1 10. Functional Assessment Tool: 11. Recreational Drug Use: Never Drug Type: Tobacco Use: Never Smoker Tobacco Type: Amount or Packs/day: How Many Years: Alcohol Use: No Frequency: Quant:
== END ==
LOC: PAIN 06:53
DX: M54.16 Radiculopathy, lumbar region (principal); I10 Essential (primary) hypertension; E78.00 Pure hypercholesterolemia, unspecified

== ENCOUNTER → 2020-04-17 | Outpatient (CLI) | payer BC ==
[~2020-04-17] VITALS: Ht 177.8 cm; Wt 86.5 kg
[~2020-04-17] MED LIST changes: +ALPRAZOLAM1 MG PO; -CLONAZEPAM 0.50.5 M1 PO; +LUNESTA3 MG PO
[2020-04-17 09:26] VITALS: BP 143/96
--- NOTE | 2020-04-17 09:38 | NUR ---
Pain Clinic Assessment: 1. History of Osteoarthritis: BACK History of Rheumatoid Arthritis: DENIES 2. Height: 5 ft. 10 in. 177.8 cm. Weight: 190.6 lb. oz. 86.456 kg. Patient's BMI: 27.3 3. Vital Signs: BP: 143/96 Pulse: 73 Resp: 16 Temp: 02 Sat: 100 ECG Mon: 4. Pain Intensity: 6 5. Fall Risk: Dizziness: N Needs help standing or walking: N Fallen in the last 3 months: N Fall risk comments: 6. Patient on Blood Thinner: None 7. History of Hypertension: Y 8. Opioid Therapy greater than 6 weeks: Y Opiate Contract Signed: 04/12/16 9. Risk Assessment Tool Provided: LOW RISK 1 10. Functional Assessment Tool: 11. Recreational Drug Use: Never Drug Type: Tobacco Use: Never Smoker Tobacco Type: Amount or Packs/day: How Many Years: Alcohol Use: No Frequency: Quant:
--- NOTE | 2020-04-17 14:33 | HPC ---
[facility] [place] [address] PAIN MANAGEMENT CONSULTATION Name: EMELIA ROJAS JR Room #: REG [facility]#: [id number] Admission: 04/17/20 Attend Phys: Mary Ann Pacheco Discharge: Date of : 65 Report #: [id number] THIS REPORT FOR: cc: Jessica Corbin MD, Tiffany MD Hocker,Mary Ann ASENCIO ~ CC: Jeronimo Baker MD DATE OF SERVICE: 04/17/2020 CHIEF COMPLAINT: Low back pain and lumbar radiculopathy. HISTORY OF PRESENT ILLNESS: This is a 54-year-old gentleman who is followed in the pain clinic for his chronic ongoing low back pain that does radiate down his right leg following the L4-L5 dermatomal distribution. He does complain of numbness and burning in this leg as well, rating his pain score today at 6/10. He feels that activity and walking do exacerbate this. 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 He does stretch every day and finds that beneficial. His medications are beneficial as well. He is here today for a refill and discuss treatment options. ALLERGIES: GABAPENTIN. CURRENT LIST OF MEDICATIONS: Oxycodone 7.5/325, Zyprexa, aspirin, Cozaar, Lipitor, and alprazolam. PQRS: 1. He does have osteoarthritis of his back. He denies any rheumatoid arthritis. 2. Height is 5 feet 10 inches, weight is 190 and BMI is 27. 3. Vital signs 143/96, pulse is 73, respirations 16, oxygen sat is 100. Pain score is 6/10. He denies dizziness, does not need help walking or standing, has not fallen in the last 3 months. The patient is not on any blood thinners, does take medicine for hypertension. His opioid therapy is greater than 6 weeks; therefore, an opioid signed contract is on the chart. Risk assessment is low. Functional assessment is 39/70. 4. Recreational drug use, he denies. He is not a smoker and does not drink alcohol. According to the prescription monitoring system, the patient is due to fill his medications this week, filling them in a timely fashion. He does take a benzodiazepine of alprazolam. He has been on these combinations for quite some time and understands the risk of this combination. PHYSICAL EXAMINATION: GENERAL: This is a well-developed, well-nourished white gentleman who appears [facility] [address] [place] [address] PAIN MANAGEMENT CONSULTATION Name: CINDY ROJASJUANA Flores Room #: [facility]#: [id number] Admission: 04/17/20 Attend Phys: Mary Ann Pacheco Discharge: Date of : 65 Report #: [id number] his stated age. He is alert and orientated, slightly anxious. His affect is appropriate. Speech is fluent, rating his pain score 5/10. HEENT: Normocephalic, atraumatic. Extraocular eye muscles are intact. He is wearing a mask and glasses today. NECK: Without adenopathy or JVD. EXTREMITIES: Upper and lower extremity strength judged to be 5/5 in all major muscle groups. MUSCULOSKELETAL: He is without significant scoliosis, kyphosis or lordosis. He has tenderness across the lumbar region of his back that does radiate down his right leg following the L4-L5 and L5-S1 dermatomal distribution with a burning component. IMPRESSION: 1. Lumbar radiculopathy at the L4-L5 and L5-S1 dermatomal distribution on the right. 2. History of lumbar radiculopathy, status post back surgery. 3. Hypertension. 4. Neuropathic pain. 5. Post-laminectomy with decompression. 6. Opioid medications under terms of written agreement. We reviewed the fact that opiate medications are being used to provide analgesia adequate to support activities of daily living, not attempting to achieve a specific pain score on the 0-10 Visual Analog Scale. The current opiate medications are providing sufficient analgesia to allow the patient to participate in activities of daily living. The patient is not exhibiting any aberrant behavior suggestive of drug diversion. The patient is not having any adverse reactions to medications. The patient is not suffering from daytime somnolence or mental acuity changes. The patient is managing opiate-induced constipation with appropriate peck-eat-udetggz agents and dietary considerations. The patient was counseled on concern for caution with operating a motor vehicle while using opiate medications. PLAN: 1. We discussed treatment options with the patient today. The patient does report increased numbness and burning down his right leg. He has had injections in the past, though it has been greater than 2 years. I did discuss this option that Dr. Baker may perform a right transforaminal to see if he gets benefit from this. At this time, the patient is going to think about a right transforaminal injection. He had received them in the past from Dr. Alvarado, he is leery to have another doctor perform one but he understands that Dr. Baker is pain doctor now since Dr. Alvarado has left the practice. 2. We did discuss Lyrica. He had had samples in October. He is unsure if they were effective or not. We will try this medication again offering 75 mg 1 at bedtime. The patient to call to let us know how this medication helps the burning pain in his right leg. [facility] [address] [place] [address] PAIN MANAGEMENT CONSULTATION Name: EMELIA ROJAS JR Room #: REG [facility]#: [id number] Admission: 04/17/20 Attend Phys: Mary Ann Pacheco Discharge: Date of : 65 Report #: [id number] 3. Scripts will be given by Dr. Guzman Baker for oxycodone 7.5/325, #75 for today and 4-week release. 4. The patient is seen in collaboration with Dr. Guzman Baker who did see him today. The patient will call if he is interested in the appointment for an injection or to report how the Lyrica is doing. <ELECTRONICALLY SIGNED> By: Mary Ann Pacheco 04/17/20 1433 1020 1400 Mary Ann Pacheco /nt
== END ==
LOC: PAIN 06:54
PROVIDERS: ATTEND Clinical Nurse Specialist Adult Health
DX: M54.17 Radiculopathy, lumbosacral region (principal); I10 Essential (primary) hypertension; M96.1 Postlaminectomy syndrome, not elsewhere classified; F11.20 Opioid dependence, uncomplicated; Z87.39 Personal history of other diseases of the musculoskeletal system and connective tissue

== ENCOUNTER → 2020-07-12 | Outpatient (CLI) | payer BC ==
[~2020-07-12] VITALS: Ht 177.8 cm; Wt 81.0 kg
[~2020-07-12] MED LIST changes: +LEXAPRO 10 MG T10 MG PO; +REXULTI1 MG PO
[2020-07-12 13:21] VITALS: BP 124/80
--- NOTE | 2020-07-12 13:39 | NUR ---
Pain Clinic Assessment: 1. History of Osteoarthritis: BACK History of Rheumatoid Arthritis: DENIES 2. Height: 5 ft. 10 in. 177.8 cm. Weight: 178.6 lb. oz. 81.012 kg. Patient's BMI: 25.6 3. Vital Signs: BP: 124/80 Pulse: 65 Resp: 18 Temp: 02 Sat: 100 ECG Mon: 4. Pain Intensity: 6 5. Fall Risk: Dizziness: N Needs help standing or walking: N Fallen in the last 3 months: Y Fall risk comments: 6. Patient on Blood Thinner: None 7. History of Hypertension: Y 8. Opioid Therapy greater than 6 weeks: Y Opiate Contract Signed: 04/12/16 9. Risk Assessment Tool Provided: LOW RISK 1 10. Functional Assessment Tool: 11. Recreational Drug Use: Never Drug Type: Tobacco Use: Never Smoker Tobacco Type: Amount or Packs/day: How Many Years: Alcohol Use: No Frequency: Quant:
--- NOTE | 2020-07-13 09:46 | HPC ---
[facility] [address] [place] [address] PAIN MANAGEMENT CONSULTATION Name: EMELIA ROJAS JR Room #: REG [facility]#: [id number] Admission: 07/12/20 Attend Phys: Mary Ann Pacheco Discharge: Date of : 65 Report #: [id number] THIS REPORT FOR: cc: Jessica Corbin MD, Tiffany MD Hocker,Mary Ann ASENCIO ~ CC: Jeronimo Baker MD DATE OF SERVICE: 07/12/2020 CHIEF COMPLAINT: Cervical radiculopathy and lumbar radiculopathy. HISTORY OF PRESENT ILLNESS: This is a 55-year-old gentleman who returns to the pain clinic today complaining of a new pain that is located in his neck radiating down his left arm including all of his fingers with occasional numbness and tingling sensation. He states this has been ongoing for about a month. He has been seeing a chiropractor and been having had adjustments as well as utilizing traction. This has not been beneficial in controlling his pain, continues to experience discomfort on a daily basis. He states that they did have x-rays taken. He shows me pictures on his phone. Today, he has not had an MRI, but has had plain x-rays. He is questioning if there was something that our doctors could help him with regarding this new cervical radiculopathy. The patient also continues to experience low back pain that radiates down his right leg. He has burning and tingly sensation, worse with activity and walking. He does feel that his medications have been beneficial as well as repositioning and using ice. Today, he is requesting refills of his Percocet medication. He denies any problems with constipation as a result of his medication. He does drink plenty of liquids throughout the day. ALLERGIES: GABAPENTIN AND LYRICA. CURRENT LIST OF MEDICATIONS: Rexulti, Lexapro, oxycodone 7.5/325, aspirin, losartan, Lipitor, and alprazolam. PQRS: 1. 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 2. Height is 5 feet 10 inches, weight is 178, BMI is 25. 3. Vital signs 124/80, pulse is 65, respirations 18, oxygen sat is 100, pain score is 6/10. 4. Fall risk. Denies dizziness, does not need help walking or standing, has fallen in the last 3 months. The patient is not on any blood thinners. He does take medicine for hypertension. His opioid therapy is greater than 6 weeks; therefore, an opioid signed contract is on the chart. Risk assessment is low. Functional assessment is 39/70. 5. Recreational drug use, he denies. He is not a smoker [place] [address] PAIN MANAGEMENT CONSULTATION Name: EMELIA ROJAS Room #: REG [facility]#: [id number] Admission: 07/12/20 Attend Phys: Mary Ann Pacheco Discharge: Date of : 65 Report #: [id number] alcohol. According to the prescription monitoring system, the patient is filling appropriately for his medication. He is due to fill his medications today. PHYSICAL EXAMINATION: GENERAL: This is a well-developed, well-nourished white gentleman who appears his stated age, slightly nervous, anxious in appearance. His affect is appropriate. His speech is fluent. Placing his pain score at 6/10 today. HEENT: Normocephalic, atraumatic. Extraocular eye muscles are intact. He is wearing glasses and a mask. NECK: Without adenopathy or JVD. Does complain of burning at the base of his neck and numbness and tingly that is following the C6-C7, C7-C8 dermatomal distribution into his left arm. EXTREMITIES: Upper extremity strength judged to be equal at 5/5. MUSCULOSKELETAL: He is without significant scoliosis, kyphosis or lordosis. He does also have tenderness in the lumbar portion of his back that does radiate into his right leg following the L4-L5 dermatomal distribution. Lower extremity strength judged to be 5/5 in all major muscle groups. He does have a slightly antalgic gait. IMPRESSION: 1. Lumbar radiculopathy. 2. Cervical radiculopathy following the C6-C7, 8 dermatomal distribution. 3. Hypertension. 4. Neuropathic pain. 5. Post-laminectomy with decompression. 6. Opioid medications written under opioid agreement. We reviewed the fact that opiate medications are being used to provide analgesia adequate to support activities of daily living, not attempting to achieve a specific pain score on the 0-10 Visual Analog Scale. The current opiate medications are providing sufficient analgesia to allow the patient to participate in activities of daily living. The patient is not exhibiting any aberrant behavior suggestive of drug diversion. The patient is not having any adverse reactions to medications. The patient is not suffering from daytime somnolence or mental acuity changes. The patient is managing opiate-induced constipation with appropriate drpk-vxi-sezoext agents and dietary considerations. The patient was counseled on concern for caution with operating a motor vehicle while using opiate medications. A physical exam was performed and the patient's functional status was evaluated. PLAN: 1. We discussed treatment options with the patient today. The patient has been having ongoing cervical issues. He reports no injury. He is being [address] [place] [address] PAIN MANAGEMENT CONSULTATION Name: BOBEMELIAJUANA Flores JR Room #: REG [facility] Jahaira#: [id number] Admission: 07/12/20 Attend Phys: Mary Ann Pacheco Discharge: Date of : 65 Report #: [id number] chiropractic very conservatively with gentle manipulation and has had plain x-rays as well as stretching. These have not been beneficial. We did discuss a cervical epidural steroid injection performed by Dr. Guzman Baker. He has had lumbar injections in the past and we discussed similarities of these injections. The patient is willing to undergo this injection in the near future since his issues have been ongoing for at least 6 weeks and conservative treatment has been ineffective. He has also tried nonsteroidal anti-inflammatories as well his opioid medications. 2. The patient has had the flu vaccination less than 2 weeks ago, so therefore, we will schedule his injection in July and seek authorization for a cervical epidural steroid injection if needed from his insurance company. In the meantime, we will have Dr. Guzman Baker send his opioid medications of oxycodone 7.5 #75 to his pharmacy for today and 4-week release. 3. The patient is seen today in collaboration with Dr. Guzman Baker. <ELECTRONICALLY SIGNED> By: Mary Ann Pcaheco 07/13/20 0946 1408 2101 Mary Ann Pacheco /brennan
== END ==
LOC: PAIN 06:48
PROVIDERS: ATTEND Clinical Nurse Specialist Adult Health
DX: M54.12 Radiculopathy, cervical region (principal); M54.16 Radiculopathy, lumbar region; I10 Essential (primary) hypertension; G62.9 Polyneuropathy, unspecified; M96.1 Postlaminectomy syndrome, not elsewhere classified; F11.20 Opioid dependence, uncomplicated; Z88.8 Allergy status to other drugs, medicaments and biological substances; Z79.899 Other long term (current) drug therapy

== ENCOUNTER → 2020-09-29 | Outpatient (CLI) | payer BC ==
[~2020-09-29] VITALS: Ht 170.2 cm; Wt 86.3 kg
[2020-09-29 13:57] VITALS: BP 130/86
--- NOTE | 2020-09-29 14:35 | NUR ---
Pain Clinic Assessment: 1. History of Osteoarthritis: BACK History of Rheumatoid Arthritis: DENIES 2. Height: 5 ft. 7 in. 170.2 cm. Weight: 190.2 lb. oz. 86.274 kg. Patient's BMI: 29.8 3. Vital Signs: BP: 130/86 Pulse: 64 Resp: 16 Temp: 02 Sat: 100 ECG Mon: 4. Pain Intensity: 7 5. Fall Risk: Dizziness: N Needs help standing or walking: N Fallen in the last 3 months: N Fall risk comments: 6. Patient on Blood Thinner: None 7. History of Hypertension: Y 8. Opioid Therapy greater than 6 weeks: Y Opiate Contract Signed: 04/12/16 9. Risk Assessment Tool Provided: LOW RISK 1 10. Functional Assessment Tool: 11. Recreational Drug Use: Never Drug Type: Tobacco Use: Never Smoker Tobacco Type: Amount or Packs/day: How Many Years: Alcohol Use: No Frequency: Quant:
== END ==
LOC: PAIN 06:57
PROVIDERS: ATTEND Anesthesiology Pain Medicine
DX: M54.16 Radiculopathy, lumbar region (principal); M54.12 Radiculopathy, cervical region; I10 Essential (primary) hypertension; Z79.891 Long term (current) use of opiate analgesic; Z79.899 Other long term (current) drug therapy

== ENCOUNTER → 2020-11-17 | Outpatient (CLI) | payer BC ==
[~2020-11-17] VITALS: Ht 170.2 cm; Wt 84.9 kg
[~2020-11-17] MED LIST changes: +ABILIFY 5 MG TAB5 MG PO; +CYMBALTA30 MG PO; +LEXAPRO20 MG PO
[2020-11-17 08:55] VITALS: BP 146/86
--- NOTE | 2020-11-17 09:00 | NUR ---
Pain Clinic Assessment: 1. History of Osteoarthritis: BACK History of Rheumatoid Arthritis: DENIES 2. Height: 5 ft. 7 in. 170.2 cm. Weight: 187.2 lb. oz. 84.913 kg. Patient's BMI: 29.3 3. Vital Signs: BP: 146/86 Pulse: 57 Resp: 16 Temp: 02 Sat: 99 ECG Mon: 4. Pain Intensity: 6 1/2 5. Fall Risk: Dizziness: N Needs help standing or walking: N Fallen in the last 3 months: Y Fall risk comments: 6. Patient on Blood Thinner: None 7. History of Hypertension: Y 8. Opioid Therapy greater than 6 weeks: Y Opiate Contract Signed: 04/12/16 9. Risk Assessment Tool Provided: LOW RISK 1 10. Functional Assessment Tool: 11. Recreational Drug Use: Never Drug Type: Tobacco Use: Never Smoker Tobacco Type: Amount or Packs/day: How Many Years: Alcohol Use: No Frequency: Quant:
== END ==
LOC: PAIN 08-09 06:52
PROVIDERS: ATTEND Anesthesiology Pain Medicine
DX: Z76.0 Encounter for issue of repeat prescription (principal); M54.16 Radiculopathy, lumbar region; M54.12 Radiculopathy, cervical region; I10 Essential (primary) hypertension; G62.9 Polyneuropathy, unspecified; M96.1 Postlaminectomy syndrome, not elsewhere classified; Z79.891 Long term (current) use of opiate analgesic; Z88.8 Allergy status to other drugs, medicaments and biological substances

== ENCOUNTER → 2021-01-31 | Outpatient (CLI) | payer BC ==
[~2021-01-31] VITALS: Ht 170.2 cm; Wt 81.6 kg
[2021-01-31 08:09] VITALS: BP 125/88
--- NOTE | 2021-01-31 08:18 | NUR ---
Pain Clinic Assessment: 1. History of Osteoarthritis: BACK History of Rheumatoid Arthritis: DENIES 2. Height: 5 ft. 7 in. 170.2 cm. Weight: 180.0 lb. oz. 81.648 kg. Patient's BMI: 28.2 3. Vital Signs: BP: 125/88 Pulse: 66 Resp: 14 Temp: 02 Sat: 99 ECG Mon: 4. Pain Intensity: 4 5. Fall Risk: Dizziness: N Needs help standing or walking: N Fallen in the last 3 months: N Fall risk comments: 6. Patient on Blood Thinner: None 7. History of Hypertension: Y 8. Opioid Therapy greater than 6 weeks: Y Opiate Contract Signed: 04/12/16 9. Risk Assessment Tool Provided: LOW RISK 1 10. Functional Assessment Tool: 11. Recreational Drug Use: Never Drug Type: Tobacco Use: Never Smoker Tobacco Type: Amount or Packs/day: How Many Years: Alcohol Use: No Frequency: Quant:
--- NOTE | 2021-02-01 08:45 | HPC ---
[facility] [address] [place] [address] PAIN MANAGEMENT CONSULTATION Name: EMELIA ROJAS Room #: REG [facility]#: [id number] Admission: 01/31/21 Attend Phys: Mary Ann Pacheco Discharge: Date of : 65 Report #: [id number] THIS REPORT FOR: cc: Jessica Corbin MD, Tiffany MD Hocker,Mary Ann Cooper DATE OF SERVICE: 01/31/2021 CHIEF COMPLAINT: Lumbar radiculopathy and cervical radiculopathy. HISTORY OF PRESENT ILLNESS: This is a 55-year-old gentleman who returns to the pain clinic today for renewal of his opioid medications. Today, he is reporting a pain score of 4/10, most significantly today in his low back that radiates in his right leg. He describes it as a burning tingly sensation that is worse with certain activities and stretching. Overall, he believes the medications are beneficial. He reports taking 2 tablets most every day with occasional third. Last visit with us was in October and he was able to make his medications last this long. The patient does have occasional cervical pain as well, though he reports that has not been problematic recently. He denies constipation or daytime somnolence as a result of his medications. The patient reports getting his first COVID vaccine this Friday. He is slightly leery about the possible side effects since he has been hearing things in the news, but he believes overall it is beneficial to have the vaccine. ALLERGIES: GABAPENTIN AND LYRICA. CURRENT LIST OF MEDICATIONS: Oxycodone 7.5/325 p.r.n., aspirin, losartan, atorvastatin, alprazolam. PQRS: 1. He has osteoarthritic changes in his back. Denies any rheumatoid arthritis. 2. Height is 5 feet 7 inches, weight is 180, BMI is 28. 3. Vital signs 125/88, pulse is 66, respirations 14, oxygen sat is 99. 4. Pain score is 4/10. 5. Denies dizziness, does not need help walking or standing, has not fallen in the last 3 months. 6. The patient is not on any blood thinners, but does take medicine for hypertension. 7. Opioid therapy is greater than 6 weeks; therefore, an opioid signed contract is on the chart. Risk assessment is low. Functional assessment is 39/70. 8. Recreational drug use, he denies. He is not a smoker and does not drink alcohol. According to the prescription monitoring system, he is filling in a timely fashion. There was 1 aberrant fill from a dentist that we will call and discuss [address] [address] PAIN MANAGEMENT CONSULTATION Name: EMELIA ROJAS Room #: REG [facility] Jahaira#: [id number] Admission: 01/31/21 Attend Phys: Mary Ann Pacheco Discharge: Date of : 65 Report #: [id number] with the pharmacy. It is not his typical pharmacy that this medication was sent to. The patient is not aware of this medication at all. So, we will call once they are open to determine this fill. It was for 6 tablets of hydrocodone. I spoke with the dentist and he confirmed sending a scripts but did not recall what the medication was sent for regarding oral care. PHYSICAL EXAMINATION: GENERAL: This is alert and orientated, well-developed, well-nourished 55-year-old gentleman who appears his stated age, rating his pain score today at 4/10. HEENT: Normocephalic, atraumatic. Extraocular eye muscles are intact. Mucous membranes are moist. He is wearing a facemask. NECK: Without adenopathy or JVD. EXTREMITIES: Upper extremity strength is symmetrical at 5/5. MUSCULOSKELETAL: He has pain in his lumbosacral region that follows the L3-L4 dermatomal distribution into his right leg on the anterior aspect of his thigh. His lower extremity strength is symmetrical at 5/5. The patient is without significant scoliosis, kyphosis or lordosis. IMPRESSION: 1. Lumbar radiculopathy. 2. Cervical radiculopathy. 3. Hypertension. 4. Neuropathic pain. 5. Post-laminectomy syndrome with decompression. 6. Opioid medication management under written agreement. We reviewed the fact that opiate medications are being used to provide analgesia adequate to support activities of daily living, not attempting to achieve a specific pain score on the 0-10 Visual Analog Scale. The current opiate medications are providing sufficient analgesia to allow the patient to participate in activities of daily living. The patient is not exhibiting any aberrant behavior suggestive of drug diversion. The patient is not having any adverse reactions to medications. The patient is not suffering from daytime somnolence or mental acuity changes. The patient is managing opiate-induced constipation with appropriate okij-srp-whpmzum agents and dietary considerations. The patient was counseled on concern for caution with operating a motor vehicle while using opiate medications. PLAN: 1. We discussed treatment options with the patient today. The patient feels his medication is beneficial. We did discuss that on more painful days he is allowed to take 3 tablets a day. The patient's medication most recently has lasted him almost 3-1/2 months and I explained that we allow him 75 tablets in a month. We could see him as early as every 2 months. We did encourage the lowest most effective dose, which the patient does seem to be able to tolerate 2 [facility] [address] [place] [address] PAIN MANAGEMENT CONSULTATION Name: EMELIA ROJAS Room #: REG [facility]#: [id number] Admission: 01/31/21 Attend Phys: Mary Ann Pacheco Discharge: Date of : 65 Report #: [id number] tablets most days; therefore seen him less often. We will continue him on his current level of oxycodone 7.5/325 with #75. Morphine mEq is 22 MMEs per day. 2. The patient is having the COVID vaccine this Friday. We did talk about possible side effects and Tylenol use after the injection. Time spent with the patient in consultation, reviewing recent studies and clinical notes and physician reports, physical examination and correlation of findings and medical documentation to determine treatments 15 minutes. Time spent in preparation for appointment, reviewing prescription monitoring system, calling pharmacy, reviewing previous records and treatment options and reviewing current medications 8 minutes. Time spent preparing and sending electronic prescriptions with collaborating physician, Dr. Guzman Baker, documentation of visit and plan of treatment 7 minutes. Total time spent 30 minutes. <ELECTRONICALLY SIGNED> By: Mary Ann Pacheco 02/01/21 0845 0915 1447 Mary Ann Pacheco /nt
== END ==
LOC: PAIN 06:44
PROVIDERS: ATTEND Clinical Nurse Specialist Adult Health
DX: M54.16 Radiculopathy, lumbar region (principal); M54.12 Radiculopathy, cervical region; I10 Essential (primary) hypertension; G62.9 Polyneuropathy, unspecified; M96.1 Postlaminectomy syndrome, not elsewhere classified; F11.20 Opioid dependence, uncomplicated; Z88.8 Allergy status to other drugs, medicaments and biological substances; Z79.899 Other long term (current) drug therapy

== ENCOUNTER → 2021-04-18 | Outpatient (CLI) | payer BC ==
[~2021-04-18] VITALS: Ht 170.2 cm; Wt 82.3 kg
[~2021-04-18] MED LIST changes: +DESVENLAFAXINE50 MG PO
[2021-04-18 09:58] VITALS: BP 139/84
--- NOTE | 2021-04-18 10:13 | NUR ---
Pain Clinic Assessment: 1. History of Osteoarthritis: BACK History of Rheumatoid Arthritis: DENIES 2. Height: 5 ft. 7 in. 170.2 cm. Weight: 181.4 lb. oz. 82.283 kg. Patient's BMI: 28.4 3. Vital Signs: BP: 139/84 Pulse: 63 Resp: 14 Temp: 02 Sat: 98 ECG Mon: 4. Pain Intensity: 6 5. Fall Risk: Dizziness: N Needs help standing or walking: N Fallen in the last 3 months: N Fall risk comments: 6. Patient on Blood Thinner: None 7. History of Hypertension: Y 8. Opioid Therapy greater than 6 weeks: Y Opiate Contract Signed: 04/12/16 9. Risk Assessment Tool Provided: LOW RISK 1 10. Functional Assessment Tool: 11. Recreational Drug Use: Never Drug Type: Tobacco Use: Never Smoker Tobacco Type: Amount or Packs/day: How Many Years: Alcohol Use: No Frequency: Quant:
== END ==
LOC: PAIN 07:02
PROVIDERS: ATTEND Anesthesiology Pain Medicine
DX: M54.12 Radiculopathy, cervical region (principal); M54.16 Radiculopathy, lumbar region; G62.9 Polyneuropathy, unspecified; I10 Essential (primary) hypertension; M96.1 Postlaminectomy syndrome, not elsewhere classified; Z79.899 Other long term (current) drug therapy; Z79.891 Long term (current) use of opiate analgesic; Z88.1 Allergy status to other antibiotic agents

== ENCOUNTER → 2021-06-15 | Outpatient (CLI) | payer BC ==
[~2021-06-15] VITALS: Ht 175.3 cm; Wt 80.3 kg
[~2021-06-15] MED LIST changes: +LIPITOR40 MG PO; +PRISTIQ ER25 MG PO
[2021-06-15 09:04] VITALS: BP 144/84
--- NOTE | 2021-06-15 09:07 | NUR ---
Document wound assessment on appropriate Wound Pressure, Monitor intervention!
--- NOTE | 2021-06-15 09:08 | NUR ---
Pain Clinic Assessment: 1. History of Osteoarthritis: BACK History of Rheumatoid Arthritis: DENIES 2. Height: 5 ft. 9 in. 175.3 cm. Weight: 177.0 lb. oz. 80.287 kg. Patient's BMI: 26.1 3. Vital Signs: BP: 144/84 Pulse: 63 Resp: 16 Temp: 02 Sat: 100 ECG Mon: 4. Pain Intensity: 4 5. Fall Risk: Dizziness: N Needs help standing or walking: N Fallen in the last 3 months: N Fall risk comments: 6. Patient on Blood Thinner: None 7. History of Hypertension: Y 8. Opioid Therapy greater than 6 weeks: Y Opiate Contract Signed: 04/12/16 9. Risk Assessment Tool Provided: LOW RISK 1 10. Functional Assessment Tool: 11. Recreational Drug Use: Never Drug Type: Tobacco Use: Never Smoker Tobacco Type: Amount or Packs/day: How Many Years: Alcohol Use: No Frequency: Quant:
== END ==
LOC: PAIN 08:15
PROVIDERS: ATTEND Anesthesiology Pain Medicine
DX: M54.12 Radiculopathy, cervical region (principal); M54.16 Radiculopathy, lumbar region; I10 Essential (primary) hypertension; Z79.891 Long term (current) use of opiate analgesic; Z79.899 Other long term (current) drug therapy; Z88.1 Allergy status to other antibiotic agents

== ENCOUNTER → 2021-08-03 | Outpatient (CLI) | payer BC ==
[~2021-08-03] VITALS: Ht 175.3 cm; Wt 79.5 kg
[2021-08-03 11:15] VITALS: BP 117/71
--- NOTE | 2021-08-03 11:33 | NUR ---
Pain Clinic Assessment: 1. History of Osteoarthritis: BACK History of Rheumatoid Arthritis: DENIES 2. Height: 5 ft. 9 in. 175.3 cm. Weight: 175.2 lb. oz. 79.470 kg. Patient's BMI: 25.9 3. Vital Signs: BP: 117/71 Pulse: 72 Resp: 14 Temp: 02 Sat: 100 ECG Mon: 4. Pain Intensity: 7 5. Fall Risk: Dizziness: N Needs help standing or walking: N Fallen in the last 3 months: N Fall risk comments: 6. Patient on Blood Thinner: None 7. History of Hypertension: Y 8. Opioid Therapy greater than 6 weeks: Y Opiate Contract Signed: 04/12/16 9. Risk Assessment Tool Provided: LOW RISK 1 10. Functional Assessment Tool: 11. Recreational Drug Use: Never Drug Type: Tobacco Use: Never Smoker Tobacco Type: Amount or Packs/day: How Many Years: Alcohol Use: No Frequency: Quant:
== END ==
LOC: PAIN 06:56
PROVIDERS: ATTEND Anesthesiology Pain Medicine
DX: M54.16 Radiculopathy, lumbar region (principal); M54.12 Radiculopathy, cervical region; I10 Essential (primary) hypertension; G62.9 Polyneuropathy, unspecified; Z79.82 Long term (current) use of aspirin; Z79.899 Other long term (current) drug therapy

== ENCOUNTER → 2021-09-28 | Outpatient (CLI) | payer BC ==
[~2021-09-28] VITALS: Ht 175.3 cm; Wt 78.5 kg
[2021-09-28 09:34] VITALS: BP 133/84
--- NOTE | 2021-09-28 09:44 | NUR ---
Pain Clinic Assessment: 1. History of Osteoarthritis: BACK History of Rheumatoid Arthritis: DENIES 2. Height: 5 ft. 9 in. 175.3 cm. Weight: 173.0 lb. oz. 78.472 kg. Patient's BMI: 25.5 3. Vital Signs: BP: 133/84 Pulse: 73 Resp: 16 Temp: 02 Sat: 100 ECG Mon: 4. Pain Intensity: 8 5. Fall Risk: Dizziness: N Needs help standing or walking: N Fallen in the last 3 months: N Fall risk comments: 6. Patient on Blood Thinner: None 7. History of Hypertension: Y 8. Opioid Therapy greater than 6 weeks: Y Opiate Contract Signed: 04/12/16 9. Risk Assessment Tool Provided: LOW RISK 1 10. Functional Assessment Tool: 11. Recreational Drug Use: Never Drug Type: Tobacco Use: Never Smoker Tobacco Type: Amount or Packs/day: How Many Years: Alcohol Use: No Frequency: Quant:
== END ==
LOC: PAIN 08:47
PROVIDERS: ATTEND Anesthesiology Pain Medicine
DX: M54.16 Radiculopathy, lumbar region (principal); M54.12 Radiculopathy, cervical region; I10 Essential (primary) hypertension; M96.1 Postlaminectomy syndrome, not elsewhere classified; Z88.8 Allergy status to other drugs, medicaments and biological substances; Z79.82 Long term (current) use of aspirin; Z79.899 Other long term (current) drug therapy

== ENCOUNTER → 2021-11-23 | Outpatient (CLI) | payer BC ==
[~2021-11-23] VITALS: Ht 175.3 cm; Wt 81.6 kg
[2021-11-23 09:00] VITALS: BP 118/85
== END ==
LOC: PAIN 08:28
PROVIDERS: ATTEND Clinical Nurse Specialist Adult Health
DX: M54.16 Radiculopathy, lumbar region (principal); M54.12 Radiculopathy, cervical region; I10 Essential (primary) hypertension; F41.9 Anxiety disorder, unspecified; F32.A Depression, unspecified; M25.561 Pain in right knee; M25.551 Pain in right hip; Z88.8 Allergy status to other drugs, medicaments and biological substances; Z79.899 Other long term (current) drug therapy